=== PATIENT | female | born 1955 | race Caucasian/White ===

== ENCOUNTER 2017-07-12 23:30 | Inpatient (IN) | payer OTHER ==
[~2017-07-12] VITALS: Ht 154.9 cm; Wt 67.0 kg
[2017-07-12] MEDS ORDERED: AMLO5TAB2 PO (23:51)
[2017-07-13] MEDS ORDERED: NITROGLYCERIN SINGLE TAB 0.4 MG SL ONE (00:12)
[2017-07-13] MEDS: NITROGLYCERIN SINGLE TAB 0.4 MG SL PRN ×3 (00:16→00:29)
[2017-07-13 00:33] LABS: HEMATOCRIT 41.1 % (34.6-47.8); HEMOGLOBIN 13.7 g/dL (11.7-16.4); WHITE BLOOD COUNT 11.6 x10^3/uL (3.4-10)
[2017-07-13 00:45] LABS: BLOOD UREA NITROGEN 15 mg/dL (7-18)
[2017-07-13 00:49] LABS: IS PT STATUS REG ER OR PRE ER? YES
[2017-07-13] MEDS ORDERED: morphine SULFATE 10 MG/ML, 1ML IVPush PRN ×2 (02:00→03:00)
[2017-07-13] MEDS ORDERED: ONDANSETRON 2MG/ML, 2ML IVPush ONE (02:00)
[2017-07-13] MEDS ORDERED: SODIUM CHLORIDE 0.9% 1,000 ML IV SCH (02:49)
[2017-07-13] MEDS ORDERED: ONDANSETRON 2MG/ML, 2ML IVPush PRN (03:00)
[2017-07-13] MEDS ORDERED: ACETAMINOPHEN 325 MG TABLET PO PRN (03:00)
[2017-07-13] MEDS ORDERED: hydrALAzine 20 MG/ML, 1ML IVPush PRN (03:00)
[2017-07-13 03:23] VITALS: BP 147/88
[2017-07-13 04:01] LABS: IS PT STATUS REG ER OR PRE ER? YES
[2017-07-13] MEDS ORDERED: KETOROLAC 30 MG/1 ML IVPush ONE (05:00)
[2017-07-13] MEDS ORDERED: REGADENOSON 0.4 MG/5 ML SYRINGE ONE (08:07)
[2017-07-13] MEDS ORDERED: AMLODIPINE 5 MG TABLET PO SCH (09:00)
[2017-07-13 09:30] LABS: IS PT STATUS REG ER OR PRE ER? NO
[2017-07-13 10:26] VITALS: BP 138/84
[2017-07-13 13:54] VITALS: BP 143/88
== END 2017-07-13 17:28 | disposition home or self-care (01) | DRG 313 ==
LOC: ED 23:57 → EDIP 07-13 01:49 → 5SO 07-13 05:06
PROVIDERS: ADMIT Hospitalist; ATTEND Hospitalist
DX: R07.89 Other chest pain (principal); I10 Essential (primary) hypertension; Z82.49 Family history of ischemic heart disease and other diseases of the circulatory system
CPT/HCPCS: 36415; 71010; 78452; 80048; 80061; 82040; 84484; 85025; 93005; 93017; J2785; A9502; C9898; J7030